=== PATIENT | male | born 1945 | race Caucasian/White ===

== ENCOUNTER 2021-10-19 04:40 | Day surgery (SDC) | payer OTHER, BC ==
[2021-10-18 08:25] VITALS: BMI 23.0
[2021-10-19 14:00] VITALS: BP 119/72; PULSE 88; TEMP 98
== END 2021-10-19 14:10 | disposition home or self-care (01) ==
LOC: JASU-ENDO 04:40
PROVIDERS: ATTEND Internal Medicine Gastroenterology
PROC: 0DBH8ZX Excision of Cecum, Via Natural or Artificial Opening Endoscopic, Diagnostic (ICD-10-PCS; 2021-10-19)
PROC: 0DBL8ZX Excision of Transverse Colon, Via Natural or Artificial Opening Endoscopic, Diagnostic (ICD-10-PCS; principal; 2021-10-19 13:15)
DX: Z12.11 Encounter for screening for malignant neoplasm of colon (principal); D12.0 Benign neoplasm of cecum; D12.3 Benign neoplasm of transverse colon; K57.30 Diverticulosis of large intestine without perforation or abscess without bleeding; Z86.010 Personal history of colon polyps; I10 Essential (primary) hypertension; Z85.51 Personal history of malignant neoplasm of bladder
CPT/HCPCS: 88305-TC

== ENCOUNTER 2023-05-09 04:42 | Day surgery (SDC) | payer OTHER, BC ==
[2023-05-08 08:08] VITALS: BMI 23.1
[2023-05-09 10:21] VITALS: TEMP 97.7
[2023-05-09 10:46] VITALS: BP 125/60; PULSE 60; RESP 15
== END 2023-05-09 11:00 | disposition home or self-care (01) ==
LOC: JASU-ENDO 04:42
PROVIDERS: ATTEND Internal Medicine Gastroenterology
PROC: 0DB68ZX Excision of Stomach, Via Natural or Artificial Opening Endoscopic, Diagnostic (ICD-10-PCS; 2023-05-09)
PROC: 0DB98ZX Excision of Duodenum, Via Natural or Artificial Opening Endoscopic, Diagnostic (ICD-10-PCS; principal; 2023-05-09 09:40)
DX: K29.50 Unspecified chronic gastritis without bleeding (principal)
CPT/HCPCS: 88305-TC; 88342-TC

== ENCOUNTER 2023-09-30 14:43 | Emergency (ER) | payer OTHER, BC ==
[2023-09-30 15:12] VITALS: BP 153/71; PULSE 96; RESP 18; TEMP 98.3; BMI 22.8
[2023-09-30] MEDS ORDERED: IBUPROFEN 400 MG TABLET (FP) PO ONE (16:30)
[2023-09-30] MEDS: IBUPROFEN 400 MG TABLET (FP) PO ONE (16:31)
[2023-09-30] MEDS ORDERED: FAMOTIDINE 20 MG TABLET ONE (17:02)
[2023-09-30] MEDS ORDERED: ONDANSETRON *ODT* 4 MG TABLET ONE (17:02)
[2023-09-30] MEDS: ONDANSETRON *ODT* 4 MG TABLET SL ONE (17:05)
[2023-09-30] MEDS: FAMOTIDINE 20 MG TABLET PO ONE (17:05)
== END 2023-09-30 18:50 | disposition home or self-care (01) ==
LOC: JER 14:43
DX: M79.602 Pain in left arm (principal); R68.83 Chills (without fever); T50.Z95A Adverse effect of other vaccines and biological substances, initial encounter
CPT/HCPCS: 93005; 93010; 99283-25; Q0162